=== PATIENT | female | born 1985 | race Caucasian/White ===

== ENCOUNTER 2017-01-28 11:37 | Emergency (ER) | payer OTHER ==
[~2017-01-28] VITALS: Ht 175.3 cm; Wt 113.4 kg
[~2017-01-28 11:37] MED LIST: PREN1TAB58 PO
[2017-01-28 12:01] VITALS: BP 155/87
--- NOTE | 2017-01-28 12:34 | PHYS DOC ---
Past Medical History Past Medical History: Depression Past Surgical History: Cholecystectomy Alcohol Use: Occasionally Drug Use: None Adult General Chief Complaint Chief Complaint: SEXUALLY TRANSMITTED DISEASE HPI HPI Patient is a 31 year old female presents to the emergency department with a history of cheating on her 2 weeks ago. Patient state she had seen a dentist. Patient states that she's been having painful urination. She states that she started having vaginal bleeding in which she states her last menstrual period was earlier in the month. Patient states that she is having pelvic pain and low back pain. She denies any fever, chills or any nausea vomiting. She states that she has not chances of being and showed menstrual cycle is completely irregular. Review of Systems Review of Systems Constitutional: Denies fever or chills [] Eyes: Denies change in visual acuity, redness, or eye pain [] HENT: Denies nasal congestion or sore throat [] Respiratory: Denies cough or shortness of breath [] Cardiovascular: No additional information not addressed in HPI [] GI: Denies abdominal pain, nausea, vomiting, bloody stools or diarrhea [] : dysuria denies hematuria [] Musculoskeletal: Denies back pain or joint pain [] Integument: Denies rash or skin lesions [] Neurologic: Denies headache, focal weakness or sensory changes [] Endocrine: Denies polyuria or polydipsia [] Current Medications Current Medications Current Medications Medications (Trade) Dose Ordered Sig/Katie Start Time Stop Time Status Last Admin Dose Admin Azithromycin (Zithromax) 1,000 mg 1X ONCE 01/28/17 12:45 01/28/17 12:46 DC 01/28/17 13:23 1,000 MG Ceftriaxone Sodium (Rocephin Im) 250 mg 1X ONCE 01/28/17 12:45 01/28/17 12:46 DC 01/28/17 13:24 250 MG Metronidazole (Flagyl) 2,000 mg 1X ONCE 01/28/17 12:45 01/28/17 12:46 DC 01/28/17 13:24 2,000 MG Allergies Allergies Allergies Coded Allergies Type Severity Reaction Last Updated Verified amoxicillin Allergy Intermediate rash 05/22/14 Yes Physical Exam Physical Exam Constitutional: Well developed, well nourished, no acute distress, non-toxic appearance. [] HENT: Normocephalic, atraumatic, bilateral external ears normal, oropharynx moist, no oral exudates, nose normal. [] Eyes: PERRLA, EOMI, conjunctiva normal, no discharge. [] Neck: Normal range of motion, no tenderness, supple, no stridor. [] Cardiovascular:Heart rate regular rhythm, no murmur [] Lungs & Thorax: Bilateral breath sounds clear to auscultation [] Skin: Warm, dry, no erythema, no rash. [] Back: No tenderness Extremities: No tenderness, no cyanosis, no clubbing, ROM intact, no edema. [] Neurologic: Alert and oriented X 3, normal motor function, normal sensory function, no focal deficits noted. [] Psychologic: Affect normal, judgement normal, mood normal. Vaginal exam completed with white vaginal discharge noted. Manual exam completed no adnexal tenderness noted no CMT tenderness noted. Current Patient Data Vital Signs Vital Signs Date Time Temp Pulse Resp B/P (MAP) Pulse Ox O2 Delivery O2 Flow Rate FiO2 01/28/17 12:01 98.5 78 16 97 Room Air 98.5 Lab Values Laboratory Tests Test 01/28/17 12:15 01/28/17 12:55 POC Urine HCG, Qualitative Hcg negative (Negative) Urine Collection Type Unknown Urine Color Yellow Urine Clarity Cloudy Urine pH 6.0 Urine Specific Andrews 1.025 Urine Protein 100 mg/dL (NEG-TRACE) Urine Glucose (UA) Negative mg/dL (NEG) Urine Ketones (Stick) Negative mg/dL (NEG) Urine Blood Large (NEG) Urine Nitrite Positive (NEG) Urine Bilirubin Negative (NEG) Urine Urobilinogen Dipstick 0.2 mg/dL (0.2 mg/dL) Urine Leukocyte Esterase Large (NEG) Urine RBC 11-20 /HPF (0-2) Urine WBC Tntc /HPF (0-4) Urine Bacteria Moderate /HPF (0-FEW) Urine Mucus Mod /LPF Microbiology 01/28/17 Wet Prep - Final, Complete EKG EKG [] Radiology/Procedures Radiology/Procedures [] Course & Med Decision Making Course & Med Decision Making Pertinent Labs and Imaging studies reviewed. (See chart for details) Since her was positive for urinary tract infection. Patient was also noted to have BV from the wet prep. Patient was treated for STDs here in the emergency department. She is provided Rocephin, Flagyl and Zithromax. Patient will be discharged home on Macrobid and Flagyl. Recommended to follow-up with her primary care physician in the next 7-10 days. Signs symptoms to return back to emergency department as been provided. [] Dragon Disclaimer Dragon Disclaimer This electronic medical record was generated, in whole or in part, using a voice recognition dictation system. Departure Departure Impression: Primary Impression: Concern about sexually transmitted disease in female without diagnosis Additional Impressions: Bacterial vaginosis Urinary tract infection Disposition: HOME, SELF-CARE Condition: STABLE Referrals: CORBY KOCH MD (PCP) Patient Instructions: Bacterial Vaginosis, [id number], Sexually Transmitted Disease, [id number], Urinary Tract Infection, [id number] Additional Instructions: You will be notified in approximately 3-4 days if you're sexually transmitted infection results are positive. Activity as tolerated. Avoid sexual intercourse for the next 2 weeks. Drink plenty of fluids such as water and cranberry juice. Avoid cranberry juice cocktail, carbonate beverages, alcohol, caffeine, citrus fruits as these are considered irritants to the bladder. Medications as prescribed. Follow-up to primary care physician next 7-10 days. Return back to emergency prior signs symptoms of become worse. Scripts Metronidazole (FLAGYL) 500 Mg Tablet 1 TAB PO BID, #14 TAB Prov: ELLE SERRANO APRN 01/28/17 Nitrofurantoin Monohyd/M-Cryst (MACROBID 100 MG CAPSULE) 100 Mg Capsule 1 CAP PO BID, #14 CAP Prov: ELLE SERRANO APRN 01/28/17 Problem Qualifiers ELLE SERRANO APRN Jan 28, 2017 12:34
[2017-01-28] MEDS ORDERED: AZITHROMYCIN 250 MG TABLET. PO ONE (12:45)
[2017-01-28] MEDS ORDERED: cefTRIAXone IM 250 MG VIAL IM ONE (12:45)
[2017-01-28] MEDS ORDERED: metroNIDAZOLE 500 MG TABLET PO ONE (12:45)
[2017-01-28 13:28] LABS: BILIRUBIN,URINE NEGATIVE (NEG); GLUCOSE,URINE NEGATIVE (NEG); NITRITE,URINE POSITIVE (NEG); PROTEIN,URINE 100 mg/dL (NEG-TRACE); UROBILINOGEN,URINE 0.2 mg/dL (0.2 mg/dL)
[2017-01-28 13:55] LABS: BACTERIA,URINE MODERATE /HPF (0-FEW); WBC,URINE TNTC /HPF (0-4)
[2017-01-28] MEDS ORDERED: NITR100C62 PO (14:03)
[2017-01-28] MEDS ORDERED: METR500T PO (14:03)
== END 2017-01-28 14:10 | disposition home or self-care (01) ==
LOC: ER 11:37
DX: Z20.2 Contact with and (suspected) exposure to infections with a predominantly sexual mode of transmission (principal); N76.0 Acute vaginitis; B96.89 Other specified bacterial agents as the cause of diseases classified elsewhere; N39.0 Urinary tract infection, site not specified; Z90.49 Acquired absence of other specified parts of digestive tract; Z88.1 Allergy status to other antibiotic agents
CPT/HCPCS: 81001; 81025; 87086; 87491; 87591; 96372; 99284; J0696; Q0111; Q0144; 87186